=== PATIENT | female | born 1965 | race Caucasian/White ===

== ENCOUNTER 2019-07-22 20:38 | Observation (INO) | payer OTHER ==
--- NOTE | 2019-07-22 21:46 | ED ---
Complex/Multi-Sys Presentation - HPI Summary HPI Summary: Patient is a 54 y/o F presenting to [facility] via EMS with complaints of syncopal episode. Patient was at dinner at [facility], 07/22/19. She notes that she had two margaritas with her dinner. Episode occurred at the end of dinner just as they had ordered coffee. Sx onset while the patient was sitting. Patient felt warm and light-headed. She then had a syncopal episode. She states that she was caught by her friends. After the patient came to, she had onset of N/V. She did not feel dizzy at the time. Patient states that she feels back to baseline currently. CP, BLE edema and SOB are denied. Patient makes note of another episode of light-headedness and syncope two weeks ago that occurred while she was on the toilet. She states that, at the time, she had abdominal pain, but did not with this episode. On triage, pain is denied, nothing is noted to aggravate/alleviate Sx. She takes metformin for pre-diabetes as well as two different BP meds for HTN. No other cardiac history is reported. PSHx of x3, hysterectomy, and eye surgery. Home medications and allergies are reviewed. - History Of Current Complaint Chief Complaint: EDSyncope Time Seen by Provider: 07/22/19 21:27 Hx Obtained From: Patient Onset/Duration: Resolved Timing: Intermittent, Lasting: Severity Currently: None - pain denied Aggravating Factor(s): nothing Alleviating Factor(s): nothing Associated Signs And Symptoms: Positive: Dizziness - light-headedness, Syncope, Nausea, Vomiting. Negative: SOB, Chest Pain, Edema - Allergies/Home Medications Allergies/Adverse Reactions: Allergies Allergy/AdvReac Type Severity Reaction Status Date / Time No Known Allergies Allergy Verified 07/22/19 20:49 Home Medications: Home Medications Estradiol TAB(NF) 1 tab PO DAILY 07/23/19 [History Confirmed 07/23/19] PMH/Surg Hx/FS Hx/Imm Hx Endocrine/Hematology History: Reports: Hx Diabetes - Pre-diabetic Cardiovascular History: Reports: Hx Hypertension - Surgical History Surgery Procedure, Year, and Place: Hysterectomy. 3 C-sections. B/L eye sx Infectious Disease History: No Infectious Disease History: Denies: Traveled Outside the [place] in Last 30 Days - Family History Known Family History: Negative: Cardiac Disease, Hypertension, Diabetes - Social History Alcohol Use: Occasionally Substance Use Type: Reports: None Smoking Status (MU): Never Smoked Tobacco Review of Systems Constitutional: Other - felt hot during episode Negative: Chest Pain Negative: Shortness Of Breath Positive: Vomiting, Nausea Negative: Edema Neurological: Other - positive - light-headedness Positive: Syncope All Other Systems Reviewed And Are Negative: Yes Physical Exam - Summary Physical Exam Summary: Appearance: Well-appearing, Well-nourished, lying in bed comfortably Skin: Warm, dry, no obvious rash Eyes: sclera anicteric, no conjunctival pallor ENT: mucous membranes moist, pharynx appears normal Neck: Supple, nontender Respiratory: Clear to auscultation, no signs of respiratory distress Cardiovascular: Normal S1, S2. No murmurs. Normal distal pulses in tibial and radial bilaterally. Abdomen: Soft, nontender, normal active bowel sounds present Musculoskeletal: Normal, Strength/ROM Intact Neurological: A&Ox3, awake and alert, mentation is normal, speech is fluent and appropriate Psychiatric: affect is normal, does not appear anxious or depressed Triage Information Reviewed: Yes Vital Signs On Initial Exam: Initial Vitals Temp Pulse Resp BP Pulse Ox 97.1 F 93 18 107/74 94 07/22/19 20:46 07/22/19 20:46 07/22/19 20:46 07/22/19 20:46 07/22/19 20:46 Vital Signs Reviewed: Yes Procedures - Sedation Patient Received Moderate/Deep Sedation with Procedure: No Diagnostics - Vital Signs Vital Signs Temp Pulse Resp BP Pulse Ox 07/22/19 20:46 97.1 F 93 18 107/74 94 - Laboratory Result Diagrams: 07/23/19 05:57 07/23/19 05:57 Lab Statement: Any lab studies that have been ordered have been reviewed, and results considered in the medical decision making process. - Radiology CXR Radiology Interpretation Completed By: ED Physician Summary of Radiographic Findings: CXR showed no acute process, pending official report. - EKG 2210 Cardiac Rate: NL - 88 bpm EKG Rhythm: Sinus Rhythm Summary of EKG Findings: EKG showed NSR at 88 BPM, P waves, QRS complex, and T waves are within normal limits, T waves and intervals are normal, no ischemic changes, no STEMI. This is a normal EKG. ED physician has reviewed and interpreted this EKG. Re-Evaluation - Re-Evaluation First Eval Re-Evaluation Time: 00:31 Comment: Results of workup discussed, will have hospitalist evaluate. Complex Multi-Symp Course/Dx Course Of Treatment: Patient is a 54 y/o F presenting to [facility] via EMS with complaints of syncopal episode. Patient was at dinner at [facility] , 07/22/19. She notes that she had two margaritas with her dinner. Episode occurred at the end of dinner just as they had ordered coffee. Sx onset while the patient was sitting. Patient felt warm and light-headed. She then had a syncopal episode. She states that she was caught by her friends. After the patient came to, she had onset of N/V. She did not feel dizzy at the time. Patient states that she feels back to baseline currently. CP, BLE edema and SOB are denied. Patient makes note of another episode of light-headedness and syncope two weeks ago that occurred while she was on the toilet. She states that , at the time, she had abdominal pain, but did not with this episode. EKG showed NSR at 88 BPM, P waves, QRS complex, and T waves are within normal limits , T waves and intervals are normal, no ischemic changes, no STEMI. This is a normal EKG. CXR showed no acute process. Bloodwork was obtained, abnormal values include WBC 12.7, MPV 6.7, absolute neuts 9.4, D-dimer 426, chlrodie 99, creatinine 0.97, glucose 108, TSH 5.81. Trop was negative. UA showed 1+ protein , trace ketones, 1+ blood, positive urobilinogen, 1+ WBC, 3+ RBC, present squamous epith cells, 1+ bacteria, hyaline casts present. Patient's case was discussed with Dr. Joy, Dr. Joy will evaluate the patient. - Diagnoses Provider Diagnoses: Syncope - Physician Notifications Discussed Care Of Patient With: Bulmaro Joy Time Discussed With Above Provider: 00:41 Instructed by Provider To: Other - Patient's case was discussed with Dr. Joy, Dr. Joy will evaluate the patient. 0233 - Patient had been evaluated by Dr. Joy, admission orders placed for the patient. Discharge ED - Sign-Out/Discharge Documenting (check all that apply): Patient Departure - admit All imaging exams completed and their final reports reviewed: Yes - Discharge Plan Condition: Stable Disposition: ADMITTED TO [facility] - Billing Disposition and Condition Condition: STABLE Disposition: Admitted to [facility] - Attestation Statements Document Initiated by Chelseye: Yes Documenting Scribe: MAURICIO RICHARDSON Provider For Whom Yue is Documenting (Include Credential): MADDY BARRIGA MD Scribe Attestation: MAURICIO Turner, scribed for MADDY BARRIGA MD on 08/01/19 at 1653. Scribe Documentation Reviewed: Yes Provider Attestation: The documentation as recorded by the MAURICIO almeida accurately reflects the service I personally performed and the decisions made by me, MADDY BARRIGA MD Status of Scribe Document: Viewed
--- OUTSIDE RECORDS SUMMARY | 2019-07-22 21:51 | XMS REPORT | Continuity of Care Document ---
:1965 External Reference #:[id number] Author Name Gwyn Calix M.D. Address [address] [place] [address] Care Team Providers Name Role Phone Derek Gentile M.D. - Internal Care Team Information Digital Publishing Specialist [phone] Medicine Problems Active Problems Provider Date Essential hypertension Onset: Prediabetes Onset: Anxiety Onset: Social History Type Date Description Comments Sex Unknown ETOH Use Rarely consumes alcohol Recreational Drug Use Denies Drug Use Tobacco Use Start: Unknown Patient has never smoked Smoking Status Reviewed: 07/03/19 Patient has never smoked Allergies, Adverse Reactions, Alerts Description No Known Drug Allergies Medications Active Medications SIG Qnty Indications Ordering Date Provider Estradiol Unknown 2mg Tablets Fluocinonide Use On Hands Unknown 0.05% Ointment twice a day if needed Hydrochlorothiazide Unknown 25mg Tablets Lotrel 5/20mg Unknown Metformin HCL ER Unknown 750mg Tablets ER 24HR Bupropion HCL 3 daily Unknown 100mg Tablets Visine Unknown 0.025-0.3% Solution Lumify one drop in Unknown 0.025% Solution both eyes as needed for redness Immunizations Description No Information Available Vital Signs Description No Information Available Results Description No Information Available Procedures Description No Information Available Medical Devices Description No Information Available Encounters Description No Information Available Assessments Date Code Description Provider 07/03/2019 E11.9 Type 2 diabetes mellitus without Gwyn Calix M.D. complications 07/03/2019 H25.13 Age-related nuclear cataract, bilateral Gwyn Calix M.D. Plan of Treatment 07/03/2019 - Gwyn Calix M.D.E11.9 Type 2 diabetes mellitus without complicationsComments:Smoking can increase the risk of developing or worsening any eye related disease, as well as affect your overall health. If you are a smoker, we strongly recommend that you quit.If you are not a smoker, we strongly recommend that you do not start. You have diabetes. I do not detect any changes in both of your retinas from diabetes at this time. Proper control of your diabetes is important for the health of your eyes. Changes in your eyes from diabetes can happen without symptoms, so it is important that you have your eyes examined.Follow up:1 Year Follow Up DFE You can expect to have your eyes dilated at your next visit. If Dr. Calix orders any additional testing, it may require extra time. We recommend that you bring sunglasses, as dilation drops often make you light sensitive until they wear off. We always recommend you bring someone to drive you home if you are uncomfortable driving with your eyes dilated. If you have any questions before your next visit, feel free to call our office at .H25.13 Age-related nuclear cataract, bilateralComments:You have been diagnosed with cataracts. If you are happy with your vision as it is now, then we willsee you at your next scheduled appointment. If you feel like your vision is getting worse before your scheduled appointment, please call [facility] at [phone]. Functional Status Description No Information Available Mental Status Description No Information Available Referrals Description No Information Available
[2019-07-22 22:28] LABS: ABS Basophils 0.1 10^3/ul (0-0.2); ABS Eosinophils 0.2 10^3/ul (0-0.6); ABS Lymphocytes 2.4 10^3/ul (1.0-4.8); ABS Monocytes 0.6 10^3/ul (0-0.8); ABS Neutrophils 9.4 10^3/ul (1.5-7.7); Eosinophil % 1.5 %; Hematocrit 41 % (35-47); Hemoglobin 13.7 g/dL (12.0-16.0); Lymphocyte % 18.8 %; Mean Corpuscular HGB Conc 34 g/dL (31-36); Mean Corpuscular Hemoglobin 29 pg (27-31); Mean Corpuscular Volume 86 fL (80-97); Mean Platelet Volume 6.7 fL (7.4-10.4); Platelet Count 374 10^3/uL (150-450); Red Blood Count 4.73 10^6 /uL (3.70-4.87); Red Cell Distribution Width 13 % (10-15); White Blood Count 12.7 10^3/uL (3.5-10.8)
[2019-07-22 22:45] LABS: Albumin 4.1 g/dL (3.2-5.2); Albumin/Globulin Ratio 1.6 (1-3); BUN/Creatinine Ratio 12.4 (8-20); Calcium 9.3 mg/dL (8.6-10.3); EGFR African American 71.9 (>60); EGFR Non-African American 59.4 (>60); Globulin 2.6 g/dL (2-4); Magnesium 1.9 mg/dL (1.9-2.7); Potassium 3.6 mmol/L (3.5-5.0); Total Bilirubin 0.4 mg/dL (0.2-1.0); Total Protein 6.7 g/dL (6.4-8.9)
[2019-07-22 23:05] LABS: Urine Appearance Cloudy; Urine Bilirubin Negative (Negative); Urine Blood 1+ (Negative); Urine Color Amber; Urine Glucose Negative (Negative); Urine Ketones Trace (Negative); Urine Nitrite Negative (Negative); Urine Protein 1+(30 mg/dL) (Negative); Urine Specific Gravity 1.029 (1.010-1.030); Urine Urobilinogen Positive (Negative)
[2019-07-22 23:14] LABS: TSH (Thyroid Stimulating Horm) 5.81 mcIU/mL (0.34-5.60)
[2019-07-22 23:19] LABS: Urine Bacteria 1+ (Absent); Urine Red Blood Cell 3+(>10/hpf) (Absent); Urine Squamous Epithelial Cell Present (Absent); Urine White Blood Cell 1+(6-10/hpf) (Absent)
[2019-07-23] MEDS ORDERED: NS 0.9% 1000 ML** 1,000 ML IV SCH (02:45)
--- NOTE | 2019-07-23 05:37 | HP ---
CC: Dr. Derek Gentile * ADMISSION HISTORY AND PHYSICAL: DATE OF ADMISSION: 07/23/19 PRIMARY CARE PHYSICIAN: Dr. Derek Gentile. CHIEF COMPLAINT: Syncope. HISTORY OF PRESENT ILLNESS: This is a 54-year-old female with past medical history of prediabetes, on metformin, hypertension, anxiety, and depression here after a syncopal episode. The patient stated that she was in her usual state of health and went out to have dinner with her friends. After dinner, the patient was feeling warm, lightheaded, and dizzy. She was sitting in between 2 of her friends and suddenly passed out. She never actually fell or hit her head as her friends caught her, and within 30 seconds, the patient was able to wake up. After waking up, she noticed that she was having severe nausea and vomiting. Friends also noticed that during the episode of her passing out, she had clenched her teeth and she was shaking. There was no urinary incontinence, no tongue biting. She was completely back to baseline after she woke up as far as any mental status or confusion. There was no evidence of any postictal state. She did feel like her vision was a bit cloudy , which lasted about 20 minutes post the event. After 20 minutes, she was completely back to her baseline, her symptoms completely resolved. She never had any chest pain, any palpitations, any other abdominal pain or bowel movements or constipation. No other numbness or tingling sensation. She did recollect another episode that occurred a few weeks ago when she was having some bowel movement, she had some abdominal pain, felt lightheaded and passed out. She fell off the toilet on her left side and hit the head to the tub. She is not sure about how long she was passed out at that point, but she did not think much of it and this did not recur until today. Given her 2 episodes of syncopal episodes without any causation, the patient is being observed in telemetry. PAST MEDICAL HISTORY: As mentioned, 1. Prediabetes. 2. Hypertension. 3. Anxiety and depression. PAST SURGICAL HISTORY: 1. She has had total abdominal hysterectomy with bilateral salpingo- oophorectomy 11 years ago, on estradiol replacement therapy. 2. Three C-sections. 3. Bilateral eye surgery for strabismus. HOME MEDICATIONS: The patient is on: 1. Estradiol 1 tablet oral daily. 2. Bupropion 300 mg oral daily. 3. Amlodipine/benazepril 5/20 mg 1 tablet oral daily. 4. Metformin 750 mg oral daily. 5. Hydrochlorothiazide 25 mg oral daily. ALLERGIES: No known drug allergies. FAMILY HISTORY: Both mom and dad are alive and they are 76 years old. Mother had some heart problems, but no heart attacks and the patient does not know the exact extent of the heart problems. The patient is diagnosed with high blood pressure. SOCIAL HISTORY: She never smoked. Occasionally drinks alcohol. Denies any drug use. 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 Lives with her who is her surrogate decision maker and the patient is otherwise full code. REVIEW OF SYSTEMS: A 14-point review of systems did not reveal any new information other than what is mentioned in the HPI. PHYSICAL EXAMINATION GENERAL: The patient is awake, alert, and oriented x3, did not appear to be in any acute respiratory distress. VITAL SIGNS: In the ER, BP was noted to be 112/75, temperature 97.9, heart rate 89, respiration rate 22, saturating 94% on room air. HEAD AND NECK: Atraumatic, normocephalic. Bilateral pupils are reactive. Oral mucosa was moist. Neck: Supple. No jugular venous distention. LUNGS: Clear to auscultation bilaterally. No wheezing, rhonchi, or rales. HEART: S1, S2. Regular rate and rhythm. ABDOMEN: Soft, nontender, nondistended. NEUROLOGIC: The patient was able to move all 4 extremities without any weakness. Sensation was grossly intact. EXTREMITIES: No cyanosis, clubbing, or edema. DIAGNOSTIC STUDIES/LAB DATA: CBC was unremarkable except for minimally elevated white count of 12.4. Coagulation profile shows D-dimer minimally elevated at 426. Comprehensive metabolic panel was unremarkable. TSH was noted to be minimally elevated at 5.81. Portable chest x-ray was otherwise unremarkable, official radiology read is still pending. EKG: No previous EKG to compare, but shows sinus rhythm at 88 beats per minute without any ST elevation, no changes in the OR interval to suggest any heart block. IMPRESSION: This is a 54-year-old female with hypertension, prediabetes, anxiety, depression, here with two syncopal episodes within the last 2 weeks for overnight observation. ASSESSMENT AND PLAN: 1. Syncope. Unclear etiology. We will monitor the patient on telemetry. Get an echocardiogram and carotid Dopplers. Her presentation does not sound like any seizure, so there is no need for any EEG, and if these tests are negative, we could consider discharging the patient, and if her symptoms recur, we might have to consider a long-term supervisor cigar making hand or an event monitor in her, and the patient may benefit from outpatient tilt table to rule out any vasovagal events. 2. History of hypertension. Currently, her blood pressure was on the low normal. We will hold BP medication. 3. History of prediabetes. We will hold metformin for now and monitor her fingerstick sliding scale. 4. History of anxiety and depression. Restart home medication. 5. DVT prophylaxis with sequential compression device. 6. Code status. Full code. [id number]/[facility] #: [id number] MTDD
[2019-07-23 06:06] LABS: ABS Basophils 0.1 10^3/ul (0-0.2); ABS Eosinophils 0.1 10^3/ul (0-0.6); ABS Lymphocytes 2.5 10^3/ul (1.0-4.8); ABS Monocytes 0.5 10^3/ul (0-0.8); ABS Neutrophils 5.7 10^3/ul (1.5-7.7); Eosinophil % 0.6 %; Hematocrit 40 % (35-47); Hemoglobin 13.2 g/dL (12.0-16.0); Lymphocyte % 28.1 %; Mean Corpuscular HGB Conc 33 g/dL (31-36); Mean Corpuscular Hemoglobin 29 pg (27-31); Mean Corpuscular Volume 87 fL (80-97); Mean Platelet Volume 6.7 fL (7.4-10.4); Nucleated Red Blood Cells % 0.1; Platelet Count 348 10^3/uL (150-450); Red Blood Count 4.58 10^6 /uL (3.70-4.87); Red Cell Distribution Width 14 % (10-15); White Blood Count 8.8 10^3/uL (3.5-10.8)
[2019-07-23 06:25] LABS: EGFR Non-African American 71.1 (>60); Potassium 3.6 mmol/L (3.5-5.0)
[2019-07-23 06:56] LABS: Free T4 0.98 ng/dL (0.61-1.12)
[2019-07-23] MEDS ORDERED: BuPROPion XL* 300 MG TAB.XL PO SCH (09:00)
[2019-07-23] MEDS ORDERED: CMCS:Estradiol TAB(NF) 1 MG TAB PO SCH (09:00)
[2019-07-23] MEDS ORDERED: Perflutren Lipid Microsphere* 3 ML VIAL ONE (12:57)
[2019-07-23 15:11] VITALS: BP 108/69
--- NOTE | 2019-07-23 15:26 | PN ---
Subjective Date of Service: 07/23/19 Interval History: Patient denies dizziness or shortness of breath. denies chest pain. Denies fever or chills, Denies abd pain n/v/d. Family History: Unchanged from Admission Social History: Unchanged from Admission Past Medical History: Unchanged from Admission Objective Active Medications: Bupropion HCl (Bupropion Xl*) 300 mg PO DAILY [facility] Last Admin: 07/23/19 10:19 Dose: 300 mg Estradiol (Estradiol Tab(Nf)) 2 mg PO DAILY [facility] Last Admin: 07/23/19 10:18 Dose: 2 mg Vital Signs - 8 hr 07/23/19 07/23/19 07/23/19 07:25 08:00 08:40 Temperature 97.8 F 98.3 F Pulse Rate 84 98 Respiratory 20 16 16 Rate Blood Pressure 100/63 115/68 (mmHg) O2 Sat by Pulse 100 97 Oximetry 07/23/19 07/23/19 07/23/19 11:09 11:12 15:10 Temperature 98.4 F 97.5 F Pulse Rate 84 96 97 Respiratory 18 18 Rate Blood Pressure 126/84 121/84 108/69 (mmHg) O2 Sat by Pulse 99 96 Oximetry Oxygen Devices in Use Now: None Appearance: appears comfortable , no acute distress Eyes: No Scleral Icterus Ears/Nose/Mouth/Throat: Clear Oropharnyx, Mucous Membranes Moist Neck: NL Appearance and Movements; NL JVP, Trachea Midline Respiratory: Symmetrical Chest Expansion and Respiratory Effort, Clear to Auscultation Cardiovascular: NL Sounds; No Murmurs; No JVD, No Edema Abdominal: NL Sounds; No Tenderness; No Distention Extremities: No Edema, No Clubbing, Cyanosis Skin: No Rash or Ulcers Neurological: Alert and Oriented x 3 Nutrition: Taking PO's Result Diagrams: 07/23/19 05:57 07/23/19 05:57 Assess/Plan/Problems-Billing Assessment: Ms. Smith is a 54 y.o female with a PMHX of htn anxiety and depression who presented to the ER after a syncopal episode. - Patient Problems (1) Syncope and collapse Status: Acute Code(s): R55 - SYNCOPE AND COLLAPSE SNOMED Code(s): 640180633 Comment: NO symptoms today Orthostatic Vital signs WNL ECHO- EF 55-60% Carotid Dopplar - negative (2) HTN (hypertension) Status: Acute Code(s): I10 - ESSENTIAL (PRIMARY) HYPERTENSION SNOMED Code(s) : 06820644 Comment: hold HCTZ- patient with syncope SBP -WNL (3) DVT prophylaxis Status: Acute Code(s): Z29.9 - ENCOUNTER FOR PROPHYLACTIC MEASURES, UNSPECIFIED SNOMED Code(s): 961186025 (4) Full code status Status: Acute Code(s): Z78.9 - OTHER SPECIFIED HEALTH STATUS SNOMED Code(s) : 707190299
--- NOTE | 2019-07-23 17:03 | ECHO ---
*[facility]* [place] [address] Fax #: [phone] Transthoracic Echocardiogram Patient: Karrie Smith : 1965 Study Date: 07/23/2019 Age: 54 Gender: F HR: 83 bpm Height: 62 in /157.5 cm BSA: 2.15 m^2 Weight: 220 lb /100 kg BMI: 40.3 kg/m^2 *Motor Checker: * Kellie Phelan RDCS RN *Referring Physician: * Bulmaro Joy *Reading Physician: * Shakila Duncan MD Indications: Syncope. History: Risk factors: Hypertension. Pre-Diabetes mellitus. Obese. Conclusions Summary: - Left ventricle: Systolic function is normal. The estimated ejection fraction is 55-60%. There is no consistent Doppler evidence of clinically significant diastolic dysfunction. - Right ventricle: Systolic function is normal. - Mitral valve: There is trace to mild regurgitation. - Tricuspid valve: There is mild regurgitation. - Pulmonary arteries: Systolic pressure is within the normal range, estimated to be 30 mm Hg. - No prior echocardiogram to compare. Study data: Transthoracic echocardiogram. Procedure: Transthoracic echocardiography was performed. Image quality was fair. The study was technically limited due to body habitus. Intravenous Definity 3 ml was administered by Artie Vasquez RN to enhance imaging. Complete 2D, spectral Doppler, and color flow Doppler. Location: Bedside. Patient status: Observation. Patient room number: 431. Rhythm: Normal sinus rhythm. Findings Left ventricle: The cavity size is mildly reduced. Wall thickness is normal. Systolic function is normal. The estimated ejection fraction is 55-60%. Wall motion is normal; there are no regional wall motion abnormalities. There is no consistent Doppler evidence of clinically significant diastolic dysfunction. Right ventricle: The cavity size is normal. Systolic function is normal. Left atrium: The atrium is normal in size. Right atrium: The atrium is normal in size. Mitral valve: The leaflets are mildly thickened. There is no evidence of stenosis. There is trace to mild regurgitation. Aortic valve: The valve is trileaflet. The leaflets are normal thickness. There is no evidence of stenosis. There is no regurgitation. Tricuspid valve: The valve is structurally normal. There is no evidence of stenosis. There is mild regurgitation. Pulmonic valve: The valve is structurally normal. There is no evidence of stenosis. There is trace regurgitation. Aorta: Ascending aorta: The ascending aorta is not dilated. Aortic arch: The aortic arch is not dilated. The aortic root appears normal. Pericardium: There is no pericardial effusion. Pulmonary arteries: The main pulmonary artery is normal-sized. Systolic pressure is within the normal range, estimated to be 30 mm Hg. Systemic veins: Inferior vena cava: The vessel is normal in size. There is (>= 50%) respiratory change in the IVC dimension. Measurements Left ventricle Value Ref Aortic valve Value Ref RENATA, LAX (L) 3.6 cm 3.8 - Peak v, S 1.36 m/sec ----- 5.2 VTI, S 27.2 cm ----- ESD, LAX 2.6 cm 2.2 - Mean grad, S 4.3 mm Hg ----- 3.5 Peak grad, S 7.4 mm Hg ----- FS, LAX 28 % 27 - 45 LVOT/AV, VTI ratio 1.02 ----- PW, ED (H) 1.0 cm 0.6 - 0.9 Mitral valve Value Ref IVS/PW, ED 0.94 -------- Peak E 0.73 m/sec ----- E', lat nguyen, TDI (L) 9.4 cm/sec >=10.0 Peak A 1.01 m/sec --- -- E/e', lat nguyen, TDI 8 -------- Decel time 218 ms ----- E', med nguyen, TDI (L) 6.0 cm/sec >=7.0 Peak grad, D 2.1 mm Hg --- -- E/e', med nguyen, TDI 12 -------- Peak E/A ratio 0.73 ----- E', avg, TDI 7.7 cm/sec -------- E/e', avg, TDI 9 <=14 Pulmonic valve Value Ref Peak v, S 0.73 m/sec ----- LVOT Value Ref Peak grad, S 2.1 mm Hg ----- Peak maria eugenia, S 1.26 m/sec -------- VTI, S 27.8 cm -------- Tricuspid valve Value Ref Peak grad, S 6 mm Hg -------- TR peak v 2.6 m/sec <=2.8 Mean grad, S 4 mm Hg -------- Peak RV-RA grad, S 27 mm Hg ----- Ventricular septum Value Ref Aortic root Value Ref IVS, ED (H) 1.0 cm 0.6 - Root diam 3.0 cm <4.2 0.9 Ascending aorta Value Ref Right ventricle Value Ref AAo AP diam, S 3.4 cm ----- RENATA, LAX 2.8 cm -------- RENATA minor ax, A4C 3.3 cm 1.9 - Aortic arch Value Ref mid 3.5 Arch diam 2.4 cm ----- Pressure, S 30 mm Hg -------- Decending aorta Value Ref Left atrium Value Ref [place] peak maria eugenia 0.65 m/sec ----- LA ID 3.1 cm -------- SI dim ES, LAX 3.1 cm -------- Pulmonary artery Value Ref ML dim, A4C 3.3 cm -------- Pressure, S 30.0 mm Hg ----- SI dim, A4C 4.8 cm -------- Vol, ES, 2-p 37 ml -------- Inferior vena cava Value Ref Vol/bsa, ES, 2-p 19 ml/m^2 16 - 34 Diam 1.4 cm ----- Right atrium Value Ref ML dim, ES, A4C 3.1 cm 2.6 - 4.4 SI dim, ES, A4C 4.6 cm 3.4 - 5.3 Estimated RAP 3 mm Hg -------- Legend: (L) and (H) moi values outside specified reference range. Prepared and electronically signed by Shakila Duncan MD 07/23/2019 17:03
[2019-07-23] MEDS ORDERED: Iodixanol* (CONTRAST) 320 MG/ML 100 ML SDV IV ONE (20:00)
--- NOTE | 2019-07-24 23:38 | DS ---
DISCHARGE SUMMARY: DATE OF ADMISSION: 07/23/19 DATE OF DISCHARGE: 07/23/19 PROVIDER: Michela Ch NP PRIMARY CARE PROVIDER: Dr. Gentile. ATTENDING PHYSICIAN WHILE IN THE HOSPITAL: Dr. Dani Mercado * (dictated by Michela Ch NP). PRIMARY DIAGNOSIS: Syncope. SECONDARY DIAGNOSES: 1. Prediabetes. 2. Hypertension. 3. Anxiety and depression. STUDIES COMPLETED WHILE IN THE HOSPITAL: She had a chest x-ray, radiologist's impression: No active cardiopulmonary disease. She had an electrocardiogram which showed sinus rhythm at a rate of 88, no ST or T wave changes. She had a carotid Doppler, impression: No sonographic Doppler evidence of hemodynamic significant carotid stenosis, negative exam. She had a transthoracic echocardiogram: Left ventricular systolic function is normal, estimated ejection fraction was 55% to 60%. There was no consistent Doppler evidence of clinically significant diastolic dysfunction. Right ventricle systolic function is normal. Mitral valve, there was trace to mild regurgitation. Tricuspid valve, there was mild regurgitation. Pulmonary artery systolic pressures within normal range, estimated at 30 [address]. She had a [address] of the chest, no pulmonary embolism, no additional findings to correlate with the patient's symptomatology, cholelithiasis. DISCHARGE MEDICATIONS: Discontinued home medications: Hydrochlorothiazide. Continued home medications: 1. Estradiol 1 tablet p.o. daily. 2. Bupropion 300 mg p.o. daily. 3. Amlodipine/benazepril 5/20 one tab p.o. daily. 4. Metformin 750 mg p.o. daily. HISTORY OF PRESENT ILLNESS AND HOSPITAL COURSE: Ms. Smith is a 54-year-old female with a past medical history significant for prediabetes on metformin, hypertension, anxiety and depression, who presented to the emergency room after a syncopal episode. The patient reports that she was in her usual state of health. She went out to dinner with her friends. At dinner, she was feeling warm, lightheaded, became dizzy. She was sitting between her two friends and suddenly passed out. he never actually fell or hit her head as her friends caught her and within 30 seconds, the patient was able to wake up. After waking up, she noticed that she had severe nausea and vomiting. Friends also noticed during the episode she was clenching her teeth and was shaking. She had no urinary incontinence, no tongue biting. She was completely back to her baseline after she woke. As far as mental status or confusion, there was no evidence of postictal state. She did report that her vision felt cloudy that lasted approximately 20 minutes and then she was completely back to her baseline. While in the hospital, the patient was monitored on telemetry. She had no arrhythmias noted on telemetry. She feels back at her baseline. She had no further episodes of feeling lightheaded or dizzy. She did have a negative CTA of the chest, negative for pulmonary emboli as she did have a positive D-dimer of 423. The patient also had a negative CT of the brain, negative carotid Dopplers. At this time, the patient is stable for discharge home. REVIEW OF SYSTEMS: The patient denies any fever, chills, unintended weight loss. Denies any chest pain or edema. Denies any nausea, vomiting, diarrhea or abdominal pain. Denies any gross hematuria or dysuria. She denies any pain or urgency with urination. She denies any rashes, lesions or open sores. PHYSICAL EXAMINATION: General: At this time, Ms. Smith is alert and oriented, resting on the bed in her room. She is in no acute distress. Vital Signs: Blood pressure 108/69, heart rate 97, respirations are 18, O2 saturation 96%, temperature was 97.5. HEENT: Head is atraumatic, normocephalic. Eyes: EOMs are intact. Sclerae anicteric and not pale. Oral mucosa appeared to be moist. Neck is supple. Lungs are clear to auscultation bilaterally. No wheezes, rales, or rhonchi. Cardiac: S1, S2. Regular rate and rhythm. No murmurs, rubs or gallops. Abdomen is soft and nontender. Bowel sounds are present x4. Extremities: She is able to move all 4 extremities. There is no clubbing or cyanosis. Neurologic: She is awake, alert, oriented x3. Her speech is clear. Thought process intact. There is no gross focal deficits. Skin is intact. At this time, Ms. Smith is stable for discharge home. DISCHARGE PLAN: Ms. Smith will be discharged back home. Activity as tolerated. 1. Syncope. I suspect the syncope could be related to hypovolemia due to hydrochlorothiazide or hypotension. The patient's blood pressure throughout her hospitalization remained in the low 100s, 103 systolically to 128 at the peak systolically during this hospitalization. She did not receive any blood pressure medications during this hospitalization. I have recommended that she discontinue taking the hydrochlorothiazide due to her low blood pressure and she should follow up with her primary care provider for further recommendations on blood pressure management and possible further reduction of her blood pressure medications. If the patient should have subsequent episodes of syncope , I would recommend a long- term event monitor to evaluate for cardiac arrhythmia. 2. Hypertension. I did discontinue her hydrochlorothiazide during this hospitalization as her systolic blood pressure ranged from 103 to 128 systolically without any blood pressure medications during this hospitalization. The patient did have a urinalysis that showed positive for wbc 's, rbc's, bacterias and squamous epithelial cells. The patient's pending urine culture does show no growth. I suspect given that patient did not have any urinary symptoms, she was not treated with antibiotics and given now that her culture is showing no growth, there is no need for treatment. I recommend the patient to follow up with her primary care provider within 4 to 7 days for further management of her blood pressure, possible reduction of her blood pressure medications as needed. This is contributing to her syncopal episodes. The patient and her family members in the room were instructed that she return to the emergency room for any chest pain, shortness of breath, weakness on one side, difficulty with speech, slurred speech, change in her vision or any other concerning symptoms. The patient and her family verbalized understanding. CONDITION ON DISCHARGE: Stable. DISPOSITION ON DISCHARGE: Home. I have discussed this with my attending Dr. Dani Mercado, he is in agreement with my plan. MICHELA CH, NAS [id number]/[facility] #: [id number] [place]
== END 2019-07-23 19:30 | disposition home or self-care (01) ==
LOC: ED 20:38 → MEDTELE 07-23 02:33
PROVIDERS: ADMIT Internal Medicine; ATTEND Internal Medicine
DX: R55 Syncope and collapse (principal); R73.03 Prediabetes; F41.9 Anxiety disorder, unspecified; K80.20 Calculus of gallbladder without cholecystitis without obstruction; F32.9 Major depressive disorder, single episode, unspecified; I10 Essential (primary) hypertension; R42 Dizziness and giddiness; R11.2 Nausea with vomiting, unspecified; E66.9 Obesity, unspecified; Z79.899 Other long term (current) drug therapy
CPT/HCPCS: 36415; 71046; 71275; 80048; 80053; 81003; 81015; 83605; 83735; 84439; 84443; 84484; 85025; 85379; 87086; 93005; 93306; 93880; 99284; C8929; G0378; Q9967